=== PATIENT | male | born 1970 | race Caucasian/White ===

== ENCOUNTER 2016-12-16 15:33 | Inpatient (IN) ==
[2016-12-16] MEDS ORDERED: SODIUM CHLORIDE 0.9% 1,000 ML IV STA (15:49)
[2016-12-16] MEDS ORDERED: DIPH/TET/ACEL PERT BOOSTER VACCINE 0.5 ML VIAL IM ONE (15:49)
[2016-12-16] MEDS ORDERED: HYDROmorphone 2 MG/1 ML VIAL IV STA ×2 (15:52→18:18)
[2016-12-16] MEDS ORDERED: ONDANSETRON 4 MG/2 ML VIAL IV STA ×2 (15:52→18:18)
[2016-12-16] MEDS ORDERED: ONDANSETRON 4 MG/2 ML VIAL ONE ×2 (15:54→18:08)
[2016-12-16] MEDS ORDERED: HYDROmorphone 2 MG/1 ML VIAL ONE ×2 (15:54→18:08)
[2016-12-16 16:36] LABS: Basophils % 0.4 % (0.0-0.8); Eosinophils # 0.2 10*3/uL (0.0-0.87); Hemoglobin 15.6 GM/DL (14.0-18.0); Immature Granulocytes % 1.4 %; Immature Granulocytes Absolute 0.14 #; Lymphocytes # 1.4 10*3/uL (1.4-4.0); Lymphocytes % 13.9 % (21.2-54.2); Mean Corpuscular HGB Conc 33.9 GM/DL (32-36); Mean Corpuscular Hemoglobin 31 PG (27-34); Mean Platelet Volume 11.3 FL (9.6-12.0); Monocytes # 0.7 10*3/uL (0.11-0.8); Monocytes % 6.5 % (1.7-12.7); Neutrophils # 7.7 10*3/uL (1.4-7.4); Neutrophils % 75.8 % (38.7-73.9); Platelet Count 139 T/CUMM (130-400); Red Blood Count 5.11 MC/CUMM (3.8-5.5); Red Cell Distribution Width 12.7 % (9.3-17.3); White Blood Count 10.1 T/CUMM (4-12)
[2016-12-16 16:50] LABS: PT Patient Result 10.4 SECS
[2016-12-16 17:08] LABS: Alanine Aminotransferase 58 U/L (16-61); Albumin 3.8 G/DL (3.4-5.0); Alkaline Phosphatase 67 U/L (45-117); Aspartate Amino Transferase 36 U/L (0-37); Blood Urea Nitrogen 17 MG/DL (7-18); Calcium 8.6 MG/DL (8.5-10.1); Glucose 96 MG/DL (74-106); Osmolality,Calculated 276.7 MOS/KG (273-304); Potassium 4.3 MMOL/L (3.5-5.1); Sodium 138 MMOL/L (136-145); Total Protein 6.9 G/DL (6.4-8.3)
[2016-12-16] MEDS ORDERED: HYDROmorphone 2 MG/1 ML VIAL IV PRN (18:49)
[2016-12-16] MEDS ORDERED: ONDANSETRON 4 MG/2 ML VIAL IV PRN (18:49)
[2016-12-16] MEDS ORDERED: ACETAMINOPHEN 325 MG TABLET PO PRN (18:49)
[2016-12-16 19:10] LABS: CKMB % 1.5 %; Troponin I Only < 0.015 NG/ML (0.00-0.045)
[2016-12-16] MEDS: LACTATED RINGERS 1,000 ML IV SCH (20:58)
[2016-12-17] MEDS: LACTATED RINGERS 1,000 ML IV SCH ×3 (03:40→22:47)
[2016-12-17 05:10] LABS: Basophils % 0.4 % (0.0-0.8); Eosinophils # 0.1 10*3/uL (0.0-0.87); Eosinophils % 1.7 % (0.00-10.9); Hemoglobin 14.1 GM/DL (14.0-18.0); Immature Granulocytes % 0.6 %; Immature Granulocytes Absolute 0.05 #; Lymphocytes # 1.5 10*3/uL (1.4-4.0); Lymphocytes % 18.6 % (21.2-54.2); Mean Corpuscular HGB Conc 34.4 GM/DL (32-36); Mean Corpuscular Hemoglobin 31 PG (27-34); Mean Corpuscular Volume 89.9 FL (87-102); Mean Platelet Volume 12.1 FL (9.6-12.0); Monocytes # 0.8 10*3/uL (0.11-0.8); Monocytes % 9.7 % (1.7-12.7); Neutrophils # 5.6 10*3/uL (1.4-7.4); Platelet Count 129 T/CUMM (130-400); Red Blood Count 4.56 MC/CUMM (3.8-5.5); Red Cell Distribution Width 13.1 % (9.3-17.3); White Blood Count 8.1 T/CUMM (4-12)
[2016-12-17 05:47] LABS: Albumin 3.2 G/DL (3.4-5.0); Bilirubin,Total 1.5 MG/DL (0.2-1.0); Calcium 8.5 MG/DL (8.5-10.1); Osmolality,Calculated 277.5 MOS/KG (273-304); Potassium 4.1 MMOL/L (3.5-5.1); Total Protein 5.6 G/DL (6.4-8.3)
[2016-12-17 06:01] LABS: CKMB % 1.9 %; Troponin I Only < 0.015 NG/ML (0.00-0.045)
[2016-12-17] MEDS: PANTOPRAZOLE 40 MG TABLET PO SCH (08:53)
[2016-12-17] MEDS: ENOXAPARIN 40 MG/0.4 ML SYRINGE SUBCUT SCH (12:05)
[2016-12-17] MEDS: KETOROLAC 10 MG TABLET PO SCH ×2 (17:59→23:18)
[2016-12-17] MEDS: oxyCODONE/ACETAMINOPHEN 5-325 MG TABLET PO SCH ×2 (18:00→23:18)
[2016-12-17] MEDS: BACLOFEN 10 MG TABLET PO SCH (20:33)
[2016-12-18] MEDS: KETOROLAC 10 MG TABLET PO SCH ×2 (06:02→14:03)
[2016-12-18] MEDS: oxyCODONE/ACETAMINOPHEN 5-325 MG TABLET PO SCH ×2 (06:03→14:02)
[2016-12-18 07:29] VITALS: BP 133/84
[2016-12-18] MEDS: BACLOFEN 10 MG TABLET PO SCH ×2 (08:43→14:03)
[2016-12-18] MEDS: PANTOPRAZOLE 40 MG TABLET PO SCH (08:43)
[2016-12-18] MEDS: ENOXAPARIN 40 MG/0.4 ML SYRINGE SUBCUT SCH (14:06)
== END 2016-12-18 15:05 | disposition home or self-care (01) | DRG 552 ==
LOC: EDUNIT# → EDBD → N.ED 15:33 → N.EDINP 15:33 → N.3E 19:47
PROVIDERS: ADMIT Surgery; ATTEND Surgery